=== PATIENT | female | born 1990 | race Caucasian/White ===

== ENCOUNTER → 2017-03-29 | Outpatient (CLI) | payer BC ==
--- NOTE | 2017-03-29 14:43 | XR ---
Lumbosacral spine HISTORY: Low back pain 5 views of the lumbosacral spine No comparisons There is no spondylolysis or spondylolisthesis. Mild spinal curvature could be positional. Lumbar john tebral bodies show preserved height and bone mineralization. Disc spaces are maintained IMPRESSION: Mild spinal curvature as described.
== END | disposition home or self-care (01) ==
LOC: RADXRMAIN 14:07
PROVIDERS: ATTEND Physician Assistant
DX: M43.8X7 Other specified deforming dorsopathies, lumbosacral region (principal)
CPT/HCPCS: 72110

== ENCOUNTER 2022-01-13 10:35 | Emergency (ER) | payer MEDICAID, OTHER ==
[2022-01-13 11:02] VITALS: BP 122/80; PULSE 85; RESP 18; TEMP 97.9
[2022-01-13 12:21] LABS: Basophils % (A) 1 %; Eosinophils # (A) 0.1 k/uL (0-0.7); Eosinophils % (A) 2 %; HCT 45.4 % (34.0-46.0); HGB 15.1 gm/dL (11.4-16.0); Lymphocytes # (A) 3.3 k/uL (1.0-4.8); Lymphocytes % (A) 39 %; MCH 30.9 pg (25.0-35.0); MCHC 33.2 g/dL (31.0-37.0); MCV 93.3 fL (80.0-100.0); Mean Platelet Volume 8.4; Monocytes # (A) 0.4 k/uL (0-1.0); Monocytes % (A) 5 %; Neutrophils # (A) 4.3 k/uL (1.3-7.7); Neutrophils % (A) 51 %; Platelet Count 277 k/uL (150-450); RBC 4.87 m/uL (3.80-5.40); RDW 12.3 % (11.5-15.5); WBC 8.4 k/uL (3.8-10.6)
--- NOTE | 2022-01-13 12:24 | ED ---
Abdominal Pain HPI - General Chief Complaint: Abdominal Pain Stated Complaint: abd pain Time Seen by Provider: 01/13/22 11:26 Source: patient, RN notes reviewed Mode of arrival: ambulatory Limitations: no limitations - History of Present Illness Initial Comments: This is a 31-year-old female who presents to the emergency department with abdominal pain. States that 2 days ago she developed pain in the right lower back that has wrapped around to the right lower abdomen. Denies any history of kidney stones or previous similar symptoms. States that her symptoms seem to be getting worse. She does note chills and diarrhea, but has not taken her tempe rature. Denies any nausea or vomiting. She did see her primary care provider today who stated that she had some red blood cells and white blood cells in her urine. She denies any milena hematuria or dysuria. MD Complaint: abdominal pain Onset/Timin -: days(s) Location: RLQ Radiation: R flank Severity scale (1-10): 8 Consistency: constant Associated Symptoms: nausea, diarrhea, chills - Related Data Patient : No Previous Rx's Medication Instructions Recorded Cyclobenzaprine [Flexeril] 5 mg PO HS PRN #10 tab 01/13/22 Diclofenac Sodium [Voltaren] 50 mg PO BID PRN #20 tab 01/13/22 Allergies Allergy/AdvReac Type Severity Reaction Status Date / Time Penicillins Allergy Anaphylaxis Verified 01/13/22 11:03 sulfamethoxazole Allergy Nausea & Verified 01/13/22 11:03 [From Bactrim] Vomiting trimethoprim [From Bactrim] Allergy Nausea & Verified 01/13/22 11:03 Vomiting Review of Systems ROS Statement: Those systems with pertinent positive or pertinent negative responses have been documented in the HPI. ROS Other: All systems not noted in ROS Statement are negative. Constitutional: Reports: chills ENT: Denies: ear pain, throat pain Respiratory: Denies: cough, dyspnea Cardiovascular: Denies: chest pain, palpitations Gastrointestinal: Reports: abdominal pain, nausea, diarrhea. Denies: vomiting Genitourinary: Denies: urgency, dysuria, frequency, hematuria Musculoskeletal: Reports: back pain Skin: Denies: rash Neurological: Denies: headache Past Medical History Past Medical History: No Reported History History of Any Multi-Drug Resistant Organisms: None Reported Past Surgical History: No Surgical Hx Reported Past Psychological History: No Psychological Hx Reported Smoking Status: Never smoker Past Alcohol Use History: Rare Past Drug Use History: None Reported General Exam Limitations: no limitations General appearance: alert, in distress Head exam: Present: atraumatic, normocephalic, normal inspection Respiratory exam: Present: normal lung sounds bilaterally. Absent: respiratory distress, wheezes, rales, rhonchi, stridor Cardiovascular Exam: Present: regular rate, normal rhythm, normal heart sounds. Absent: systolic murmur, diastolic murmur, rubs, gallop, clicks GI/Abdominal exam: Present: soft, tenderness (mild pain in RLQ, tenderness to deep palpation in the mid left abdomen.), hyperactive bowel sounds. Absent: distended Back exam: Present: CVA tenderness (R). Absent: CVA tenderness (L) Neurological exam: Present: alert, oriented X3, CN II-XII intact Psychiatric exam: Present: normal affect, normal mood Skin exam: Present: warm, dry, intact, normal color. Absent: rash Course Vital Signs 01/13/22 10:58 Temperature 97.9 F Pulse Rate 85 Respiratory 18 Rate Blood Pressure 122/80 O2 Sat by Pulse 98 Oximetry Medical Decision Making - Medical Decision Making This is a 31-year-old female who presents to the emergency department for right lower abdominal pain and right lower back pain. Emergency Department abdominal panel ordered, including a CBC, CMP, amylase, lipase, and lactic acid. Urinalysis and beta hCG ordered as well. She is noted to be in distress during examination. Patient started on a liter of fluids and given Toradol for pain. CMP reveals mildly elevated ALT and urinalysis is consistent with some contamination, but does reveal trace blood. CBC does not have an elevated white count and reveals no signs of infection. Patient is also afebrile. Shared decision making took place with the patient when discussing a CT scan. I discussed with the patient the risk of radiation exposure, which can cause harm to ovaries in females and lead to reproductive issues in the future. However, given the acuity of her pain without similar symptoms in the past, chills, and trace blood in the urine, I do believe that this is a reasonable decision to evaluate for a possible kidney stone. Patient is agreeable to this and requests we proceed with a CT scan. 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 Patient did not report any pain on the left, but states that it hurt when I palpated her. She also did report significant improvement in pain with fluids and Toradol. I spoke with ED attending Dr. Craft, who advised she be discharged on antiinflammatories with follow up with her PCP for further evaluation and possible surgery referral if symptoms persist. I sent in a prescription for Diclofenac to the patient's pharmacy. Advised that she can take either this or Ibuprofen, however she cannot take them together. This will give her two antiinflammatory options, in the event one is more effective. Tylenol #3 starter pack provided to be taken when pain is more severe, advised only taking this at night and avoiding driving or operating machinery on this. Because the pain is in an area where she may have musculoskeletal pain, I will give her a small prescription for flexeril to see i f she has any improvement with that. I also advised her to only take this at night as it can cause drowsiness. Hot packs recommended as well. Patient was able to drink and eat at discharge and did not require any nausea medication while in the emergency department. Return precautions reviewed in depth, the patient is instructed to return to the emergency department if symptoms worsen including but not limited to, worsening pain, fevers, or uncontrollable vomiting. Patient verbalized understanding. This case was discussed in detail with the attending ED physician. Presentation, findings, and treatment plan discussed in detail as well. - Lab Data Result diagrams: 01/13/22 11:57 01/13/22 11:57 Lab Results 01/13/22 01/13/22 01/13/22 Range/Units 11:57 11:57 11:57 WBC 8.4 (3.8-10.6) k/uL RBC 4.87 (3.80-5.40) m/uL Hgb 15.1 (11.4-16.0) gm/dL Hct 45.4 (34.0-46.0) % MCV 93.3 (80.0-100.0) fL MCH 30.9 (25.0-35.0) pg MCHC 33.2 (31.0-37.0) g/dL RDW 12.3 (11.5-15.5) % Plt Count 277 (150-450) k/uL MPV 8.4 Neutrophils % 51 % Lymphocytes % 39 % Monocytes % 5 % Eosinophils % 2 % Basophils % 1 % Neutrophils # 4.3 (1.3-7.7) k/uL Lymphocytes # 3.3 (1.0-4.8) k/uL Monocytes # 0.4 (0-1.0) k/uL Eosinophils # 0.1 (0-0.7) k/uL Basophils # 0.0 (0-0.2) k/uL Sodium 137 (137-145) mmol/L Potassium 3.9 (3.5-5.1) mmol/L Chloride 105 (98-107) mmol/L Carbon Dioxide 26 (22-30) mmol/L Anion Gap 6 mmol/L BUN 10 (7-17) mg/dL Creatinine 0.75 (0.52-1.04) mg/dL Est GFR (CKD-EPI)AfAm >90 (>60 ml/min/1.73 sqM) Est GFR (CKD-EPI)NonAf >90 (>60 ml/min/1.73 sqM) Glucose 86 (74-99) mg/dL Plasma Lactic Acid Deangelo 1.3 (0.7-2.0) mmol/L Calcium 9.7 (8.4-10.2) mg/dL Total Bilirubin 0.9 (0.2-1.3) mg/dL AST 32 (14-36) U/L ALT 42 H (4-34) U/L Alkaline Phosphatase 58 (38-126) U/L Total Protein 8.0 (6.3-8.2) g/dL Albumin 4.6 (3.5-5.0) g/dL Amylase 63 (30-110) U/L Lipase 62 (23-300) U/L Urine Color Urine Appearance (Clear) Urine pH (5.0-8.0) Ur Specific [place] (1.001-1.035) Urine Protein (Negative) Urine Glucose (UA) (Negative) Urine Ketones (Negative) Urine Blood (Negative) Urine Nitrite (Negative) Urine Bilirubin (Negative) Urine Urobilinogen (<2.0) mg/dL Ur Leukocyte Esterase (Negative) Urine RBC (0-5) /hpf Urine WBC (0-5) /hpf Ur Squamous Epith Cells (0-4) /hpf Urine Bacteria (None) /hpf Hyaline Casts (0-2) /lpf Urine Mucus (None) /hpf Urine HCG, Qual (Not Detectd) 01/13/22 01/13/22 Range/Units 12:08 12:08 WBC (3.8-10.6) k/uL RBC (3.80-5.40) m/uL Hgb (11.4-16.0) gm/dL Hct (34.0-46.0) % MCV (80.0-100.0) fL MCH (25.0-35.0) pg MCHC (31.0-37.0) g/dL RDW (11.5-15.5) % Plt Count (150-450) k/uL MPV Neutrophils % % Lymphocytes % % Monocytes % % Eosinophils % % Basophils % % Neutrophils # (1.3-7.7) k/uL Lymphocytes # (1.0-4.8) k/uL Monocytes # (0-1.0) k/uL Eosinophils # (0-0.7) k/uL Basophils # (0-0.2) k/uL Sodium (137-145) mmol/L Potassium (3.5-5.1) mmol/L Chloride (98-107) mmol/L Carbon Dioxide (22-30) mmol/L Anion Gap mmol/L BUN (7-17) mg/dL Creatinine (0.52-1.04) mg/dL Est GFR (CKD-EPI)AfAm (>60 ml/min/1.73 sqM) Est GFR (CKD-EPI)NonAf (>60 ml/min/1.73 sqM) Glucose (74-99) mg/dL Plasma Lactic Acid Deangelo (0.7-2.0) mmol/L Calcium (8.4-10.2) mg/dL Total Bilirubin (0.2-1.3) mg/dL AST (14-36) U/L ALT (4-34) U/L Alkaline Phosphatase (38-126) U/L Total Protein (6.3-8.2) g/dL Albumin (3.5-5.0) g/dL Amylase (30-110) U/L Lipase (23-300) U/L Urine Color Yellow Urine Appearance Cloudy H (Clear) Urine pH 5.5 (5.0-8.0) Ur Specific [place] 1.023 (1.001-1.035) Urine Protein Negative (Negative) Urine Glucose (UA) Negative (Negative) Urine Ketones Negative (Negative) Urine Blood Trace H (Negative) Urine Nitrite Negative (Negative) Urine Bilirubin Negative (Negative) Urine Urobilinogen <2.0 (<2.0) mg/dL Ur Leukocyte Esterase Negative (Negative) Urine RBC <1 (0-5) /hpf Urine WBC 1 (0-5) /hpf Ur Squamous Epith Cells 6 H (0-4) /hpf Urine Bacteria Rare H (None) /hpf Hyaline Casts 1 (0-2) /lpf Urine Mucus Moderate H (None) /hpf Urine HCG, Qual Not Detected (Not Detectd) - Radiology Data Radiology results: report reviewed, image reviewed Disposition Clinical Impression: Right flank pain Disposition: HOME SELF-CARE Instructions (If sedation given, give patient instructions): Acute Abdominal Pain (ED), Abdominal Pain (ED), Flank Pain (ED) Additional Instructions: Return to the emergency department if your symptoms worsen, including but not limited to, worsening pain, fevers, chills, or vomiting. Follow up with your primary care provider in 2 days for reevaluation of symptoms and discussion of CT results to determine if further evaluation if warranted. Take the Tylenol #3 and Flexeril at night, as it can cause drowsiness. Avoid driving or operating machinery when taking them. Do not take Diclofenac with Ibuprofen, you can take this with Tylenol. Apply hot packs to the area of pain. Prescriptions: Cyclobenzaprine [Flexeril] 5 mg PO HS PRN #10 tab PRN Reason: Pain Diclofenac Sodium [Voltaren] 50 mg PO BID PRN #20 tab PRN Reason: Nausea And Vomiting Is patient prescribed a controlled substance at d/c from ED?: No Referrals: None,Stated [Primary Care Provider] - 1-2 days
[2022-01-13] MEDS ORDERED: SODIUM CHLORIDE 0.9% 1,000 ML IV STA (12:25)
[2022-01-13] MEDS ORDERED: KETOROLAC 15 MG/ML 1 ML VIAL IVP STA (12:26)
[2022-01-13 12:30] LABS: Appearance,Urine Cloudy (Clear); Bacteria,Urine Rare /hpf; Bilirubin,Urine Negative (Negative); Blood,Urine Trace (Negative); Color,Urine Yellow; Glucose,Urine (UA) Negative (Negative); Hyaline Casts,Urine 1 /lpf (0-2); Ketones,Urine Negative (Negative); Leukocyte Esterase,Urine Negative (Negative); Mucus,Urine Moderate /hpf; Nitrite,Urine Negative (Negative); PH, Urine 5.5 (5.0-8.0); Protein,Urine Negative (Negative); RBC,Urine <1 /hpf (0-5); Specific Gravity,Urine 1.023 (1.001-1.035); Squamous Epithelial Cell,Urine 6 /hpf (0-4); Urobilinogen,Urine <2.0 mg/dL (<2.0); WBC,Urine 1 /hpf (0-5)
[2022-01-13 12:37] LABS: ALT 42 U/L (4-34); AST 32 U/L (14-36); African American GFR (CKD) >90 (>60 ml/min/1.73 sqM); Albumin 4.6 g/dL (3.5-5.0); Alkaline Phosphatase 58 U/L (38-126); Amylase 63 U/L (30-110); Anion Gap 6 mmol/L; Blood Urea Nitrogen 10 mg/dL (7-17); Calcium 9.7 mg/dL (8.4-10.2); Carbon Dioxide 26 mmol/L (22-30); Chloride 105 mmol/L (98-107); Glucose 86 mg/dL (74-99); Lipase 62 U/L (23-300); Non-African American GFR(CKD) >90 (>60 ml/min/1.73 sqM); Potassium 3.9 mmol/L (3.5-5.1); Sodium 137 mmol/L (137-145); Total Bilirubin 0.9 mg/dL (0.2-1.3)
--- NOTE | 2022-01-13 13:14 | CT ---
EXAMINATION TYPE: CT abdomen pelvis wo con DATE OF EXAM: 01/13/2022 HISTORY: Generalized abdominal pain CT DLP: 992.9 mGycm. Automated Exposure Control for Dose Reduction was Utilized. TECHNIQUE: CT scan of the abdomen and pelvis is performed without oral or IV contrast. COMPARISON: NONE FINDINGS: Within the limitations of a non-contrast study, the following observations are made. LUNG BASES: No significant abnormality is appreciated. LIVER/GB: Liver is heterogeneously hypodense consistent with diffuse fatty infiltration. There is int raluminal low dense gallstone axial image 43. No surrounding inflammatory change or fat stranding shawnee und gallbladder noted. No biliary dilatation seen. PANCREAS: No significant abnormality is seen. SPLEEN: No significant abnormality is seen. ADRENALS: Nonspecific 1.2 cm left adrenal nodular thickening at the measures 33 favors benign etiolog y due to small size and patient's age. KIDNEYS: No renal calculi or hydronephrosis seen bilaterally. BOWEL: No suspicious small or large bowel dilation. Normal-appearing appendix extends medially from b ase of cecum. GENITAL ORGANS: Retroverted uterus. Ovaries are symmetric and upper limits of normal in size. A left- sided pelvic phlebolith axial image 136. LYMPH NODES: No greater than 1cm abdominal or pelvic lymph nodes are appreciated. Few slightly promin ent but subcentimeter lymph nodes throughout the left side of the mesentery with mild vasa prominence . OSSEOUS STRUCTURES: No significant abnormality is seen. OTHER: No significant additional abnormality is seen. IMPRESSION: No renal stones or hydronephrosis is seen bilaterally. No bowel obstruction. Borderline m ild darlene mesentery appearance particularly left abdomen could reflect product of mesenteric pannicul itis. Correlate clinically.
[2022-01-13] MEDS ORDERED: ACET/COD 300 MG/30 MG STARTER PACK 6 TAB BTL PO STA (13:55)
== END 2022-01-13 14:29 | disposition home or self-care (01) ==
LOC: EC 10:35
DX: R10.9 Unspecified abdominal pain (principal); Z88.0 Allergy status to penicillin; Z88.2 Allergy status to sulfonamides
CPT/HCPCS: 36415; 80053; 82150; 83605; 83690; 85025; 81001; 81025; 74176; 99284; 96374; 96361; J1885

== ENCOUNTER → 2022-07-30 | Outpatient (CLI) | payer BC ==
--- NOTE | 2022-07-30 14:32 | USB ---
Reason for Exam: Clinical finding. Findings: The upper outer quadrant of the left breast, the axilla of the left breast and the retroareolar of the left breast were scanned. A complete US of all four quadrants of the breast and retro-areolar region were reviewed. There is a heterogenous slightly hypoechoic mass at 1:00 10 cm from nipple measuring 1.6 x 1.3 x 1.4 cm. Anechoic cyst with posterior acoustic enhancement at 1:00 10 cm from the nipple consistent with cysts. Overall Assessment: Probably benign, BI-RAD 3 Management: Diagnostic Breast Ultrasound of the left breast in 3 months. Follow-up for heterogenous slightly hypoechoic mass at 1:00 10 cm from the nipple these may represent fibroadenoma versus other. A clinical breast exam by your physician is recommended on an annual basis and results should be correlated with mammographic findings. Electronically signed and approved by: Luke Tay DO
== END | disposition home or self-care (01) ==
LOC: RADUSWWP 13:54 → MERGE 14:20
PROVIDERS: ATTEND Obstetrics & Gynecology
DX: N63.0 Unspecified lump in unspecified breast (principal); N64.4 Mastodynia

== ENCOUNTER 2023-09-24 15:15 | Emergency (ER) | payer BC ==
--- NOTE | 2023-09-24 15:38 | ED ---
General Adult HPI - General Source: patient, RN notes reviewed Mode of arrival: ambulatory Limitations: no limitations <Kishore Klein - Last Filed: 09/24/23 15:37> <Jeff Jenkins - Last Filed: 09/24/23 20:56> - General Stated complaint: abd pain Time Seen by Provider: 09/24/23 15:37 - History of Present Illness Initial comments: 32-year-old female presents emergency Department chief complaint of lower abdominal pain. Patient states that she does not have any dysuria hematuria states she may be . Patient states that she did have in November and had a baby. Patient denies any fevers or chills no back pain (Kishore Klein) 32-year-old female presenting with chief complaint of abdominal pain. Patient started experiencing centralize pelvic pain that around 12:30 this afternoon. No vaginal bleeding or discharge, dysuria, hematuria, flank pain, nausea, vomiting, diarrhea, constipation, fever, chills. Patient is concerned she may be . (Jeff Jenkins) - Related Data Allergies Allergy/AdvReac Type Severity Reaction Status Date / Time Penicillins Allergy Anaphylaxis Verified 12/12/22 06:51 sulfamethoxazole Allergy Nausea & Verified 12/12/22 06:51 [From Bactrim] Vomiting trimethoprim [From Bactrim] Allergy Nausea & Verified 12/12/22 06:51 Vomiting Review of Systems ROS Other: All systems not noted in ROS Statement are negative. <Kishore Klein - Last Filed: 09/24/23 15:37> ROS Other: All systems not noted in ROS Statement are negative. <Jeff Jenkins - Last Filed: 09/24/23 20:56> ROS Statement: Those systems with pertinent positive or pertinent negative responses have been documented in the HPI. Past Medical History Past Medical History: No Reported History History of Any Multi-Drug Resistant Organisms: None Reported Past Surgical History: No Surgical Hx Reported Additional Past Surgical History / Comment(s): cervical biopsy, cold knife cone, rhinoplasty Past Anesthesia/Blood Transfusion Reactions: No Reported Reaction Past Psychological History: No Psychological Hx Reported Smoking Status: Never smoker Past Alcohol Use History: None Reported Past Drug Use History: None Reported <Kishore Klein - Last Filed: 09/24/23 15:37> General Exam <Kishore Klein - Last Filed: 09/24/23 15:37> Limitations: no limitations General appearance: alert, in no apparent distress Head exam: Present: atraumatic, normocephalic, normal inspection Eye exam: Present: normal appearance, EOMI Neck exam: Present: normal inspection, full ROM Respiratory exam: Present: normal lung sounds bilaterally. Absent: respiratory distress, wheezes, rales, rhonchi, stridor Cardiovascular Exam: Present: regular rate, normal rhythm, normal heart sounds. Absent: systolic murmur, diastolic murmur, rubs, gallop, clicks GI/Abdominal exam: Present: soft, tenderness (Diffuse discomfort in all 4 quadrants, no guarding or rebound, not worse on R vs L side). Absent: distended, guarding, rebound, rigid Neurological exam: Present: alert, oriented X3 Psychiatric exam: Present: normal affect, normal mood Skin exam: Present: warm, dry, intact, normal color. Absent: rash <Jeff Jenkins - Last Filed: 09/24/23 20:56> - General Exam Comments Initial Comments: Visual Physical Exam Vital signs reviewed General: Well-appearing, nontoxic, no acute distress. Head: Normocephalic, atraumatic Eyes: PERRLA, EOMI ENT: Airway patent Chest: Nonlabored breathing Skin: No visual rash, normal skin tone Neuro: Alert and oriented 3 Musculoskeletal: No gross abnormalities (Kishore Klein) Course Vital Signs 09/24/23 16:07 Temperature 98.4 F Pulse Rate 87 Respiratory 18 Rate Blood Pressure 128/83 O2 Sat by Pulse 98 Oximetry Medical Decision Making <Kishore Klein - Last Filed: 09/24/23 15:37> - Lab Data Result diagrams: 09/24/23 16:52 09/24/23 16:52 <Jeff Jenkins - Last Filed: 09/24/23 20:56> - Medical Decision Making I completed the quick note portion of this chart signed Kishore Klein PA-C (Kishore Klein) Was pt. sent in by a medical professional or institution ([facility], [facility] [facility], urgent care, hospital, or half-way...) When possible be specific @ -No Did you speak to anyone other than the patient for history (EMS, parent, family, police, friend...)? What history was obtained from this source @ -No Did you review nursing and triage notes (agree or disagree)? Why? @ -I reviewed and agree with nursing and triage notes Were old charts reviewed (outside hosp., previous admission, EMS record, old EKG, old radiological studies, urgent care reports/EKG's, half-way records)? Report findings @ -No old charts were reviewed Differential Diagnosis (chest pain, altered mental status, abdominal pain women, abdominal pain men, vaginal bleeding, weakness, fever, dyspnea, syncope, headache, dizziness, GI bleed, back pain, seizure, CVA, palpatations, mental health, musculoskeletal)? @ -MDM Differential Abdominal Pain Women: Appendicitis, Cholecystitis, diverticulosis, ischemic bowel, pancreatitis, hep atitis, UTI, gastroenteritis, AAA, incarcerated hernia, bowel obstruction, constipation, inflammatory bowel, hepatitis, peptic ulcer disease, splenic infarction, perforated viscus, vulvitis, ovarian torsion, PID, kidney stone, placenta abruption... This is not meant to be an all-inclusive list EKG interpreted by me (3pts min.). @ -As above X-rays interpreted by me (1pt min.). @ -None done CT interpreted by me (1pt min.). @ -None done U/S interpreted by me (1pt. min.). @ -None done What testing was considered but not performed or refused? (CT, X-rays, U/S, labs)? Why? @ -None What meds were considered but not given or refused? Why? @ -None Did you discuss the management of the patient with other professionals (professionals i.e. , PA, [employer], lab, RT, psych nurse, social services specialist, supervisor customer services, teacher, public information officer, residential case manager)? Give summary @ -No Was smoking cessation discussed for >3mins.? @ -No Was critical care preformed (if so, how long)? @ -No Were there social determinants of health that impacted care today? How? (Homelessness, low income, unemployed, alcoholism, drug addiction, transportation, low edu. Level, literacy, decrease access to med. care, halfway, rehab)? @ -No Was there de-escalation of care discussed even if they declined (Discuss DNR or withdrawal of care, Hospice)? DNR status @ -No What co-morbidities impacted this encounter? (DM, HTN, Smoking, COPD, CAD, Cancer, CVA, ARF, Chemo, Hep., AIDS, mental health diagnosis, sleep apnea, morbid obesity)? @ -None Was patient admitted / discharged? Hospital course, mention meds given and route, prescriptions, significant lab abnormalities, going to OR and other pertinent info. @ -32-year-old female presenting with chief complaint of abdominal pain. Pain is located in the central portion of the pelvis, located suprapubically, pain is not worse on the right or left side. On physical exam she has diffuse discomfort in all 4 quadrants. Lab work shows no leukocytosis or anemia. CMP is essentially unremarkable. Urine shows no bleeding or infectious process. Negative hCG. Patient is given Toradol. Patient is resting in the bed showing no acute signs of distress. She is requesting to be discharged. Follow-up with PCP. Report back to ER with any new or worsening symptoms. Discussed return parameters and answered all questions. Patient conveyed verbal understanding and agreed to the plan. I discussed this case in detail with my attending Dr. Hernández Undiagnosed new problem with uncertain prognosis? @ -No Drug Therapy requiring intensive monitoring for toxicity (Heparin, Nitro, Insulin, Cardizem)? @ -No Were any procedures done? @ -No Diagnosis/symptom? @ -Abdominal pain Acute, or Chronic, or Acute on Chronic? @ -Acute Uncomplicated (without systemic symptoms) or Complicated (systemic symptoms)? @ -uncomplicated Side effects of treatment? @ -No Exacerbation, Progression, or Severe Exacerbation? @ -No Poses a threat to life or bodily function? How? (Chest pain, [place], [place], pneumonia, PE, COPD, DKA, ARF, appy, cholecystitis, CVA, Diverticulitis, Homicidal, Suic idal, threat to staff... and all critical care pts) @ -Low likelihood (Jeff Jenkins) - Lab Data Lab Results 09/24/23 09/24/23 09/24/23 Range/Units 16:52 16:52 16:52 WBC 8.9 (3.8-10.6) k/uL RBC 4.57 (3.80-5.40) m/uL Hgb 14.0 (11.4-16.0) gm/dL Hct 40.6 (34.0-46.0) % MCV 89.0 (80.0-100.0) fL MCH 30.7 (25.0-35.0) pg MCHC 34.5 (31.0-37.0) g/dL RDW 13.3 (11.5-15.5) % Plt Count 233 (150-450) k/uL MPV 8.7 Neutrophils % 49 % Lymphocytes % 42 % Monocytes % 6 % Eosinophils % 2 % Basophils % 0 % Neutrophils # 4.3 (1.3-7.7) k/uL Lymphocytes # 3.7 (1.0-4.8) k/uL Monocytes # 0.5 (0-1.0) k/uL Eosinophils # 0.2 (0-0.7) k/uL Basophils # 0.0 (0-0.2) k/uL Sodium 139 (137-145) mmol/L Potassium 4.0 (3.5-5.1) mmol/L Chloride 102 (98-107) mmol/L Carbon Dioxide 25 (22-30) mmol/L Anion Gap 12 mmol/L BUN 10 (7-17) mg/dL Creatinine 0.61 (0.52-1.04) mg/dL Est GFR (CKD-EPI)AfAm >90 (>60 ml/min/1.73 sqM) Est GFR (CKD-EPI)NonAf >90 (>60 ml/min/1.73 sqM) Glucose 84 (74-99) mg/dL Calcium 9.8 (8.4-10.2) mg/dL Total Bilirubin 0.6 (0.2-1.3) mg/dL AST 30 (14-36) U/L ALT 45 H (4-34) U/L Alkaline Phosphatase 70 (38-126) U/L Total Protein 7.6 (6.3-8.2) g/dL Albumin 4.5 (3.5-5.0) g/dL Lipase 62 (23-300) U/L Urine Color Yellow Urine Appearance Clear (Clear) Urine pH 6.0 (5.0-8.0) Ur Specific Holcomb 1.041 H (1.001-1.035) Urine Protein Trace H (Negative) Urine Glucose (UA) Negative (Negative) Urine Ketones Trace H (Negative) Urine Blood Negative (Negative) Urine Nitrite Negative (Negative) Urine Bilirubin Negative (Negative) Urine Urobilinogen 2.0 (<2.0) mg/dL Ur Leukocyte Esterase Negative (Negative) Urine HCG, Qual (Not Detectd) 09/24/23 Range/Units 16:52 WBC (3.8-10.6) k/uL RBC (3.80-5.40) m/uL Hgb (11.4-16.0) gm/dL Hct (34.0-46.0) % MCV (80.0-100.0) fL MCH (25.0-35.0) pg MCHC (31.0-37.0) g/dL RDW (11.5-15.5) % Plt Count (150-450) k/uL MPV Neutrophils % % Lymphocytes % % Monocytes % % Eosinophils % % Basophils % % Neutrophils # (1.3-7.7) k/uL Lymphocytes # (1.0-4.8) k/uL Monocytes # (0-1.0) k/uL Eosinophils # (0-0.7) k/uL Basophils # (0-0.2) k/uL Sodium (137-145) mmol/L Potassium (3.5-5.1) mmol/L Chloride (98-107) mmol/L Carbon Dioxide (22-30) mmol/L Anion Gap mmol/L BUN (7-17) mg/dL Creatinine (0.52-1.04) mg/dL Est GFR (CKD-EPI)AfAm (>60 ml/min/1.73 sqM) Est GFR (CKD-EPI)NonAf (>60 ml/min/1.73 sqM) Glucose (74-99) mg/dL Calcium (8.4-10.2) mg/dL Total Bilirubin (0.2-1.3) mg/dL AST (14-36) U/L ALT (4-34) U/L Alkaline Phosphatase (38-126) U/L Total Protein (6.3-8.2) g/dL Albumin (3.5-5.0) g/dL Lipase (23-300) U/L Urine Color Urine Appearance (Clear) Urine pH (5.0-8.0) Ur Specific Holcomb (1.001-1.035) Urine Protein (Negative) Urine Glucose (UA) (Negative) Urine Ketones (Negative) Urine Blood (Negative) Urine Nitrite (Negative) Urine Bilirubin (Negative) Urine Urobilinogen (<2.0) mg/dL Ur Leukocyte Esterase (Negative) Urine HCG, Qual Not Detected (Not Detectd) Disposition <Kishore Klein - Last Filed: 09/24/23 15:37> Is patient prescribed a controlled substance at d/c from ED?: No Time of Disposition: 19:09 <Jeff Jenkins - Last Filed: 09/24/23 20:56> Clinical Impression: Abdominal pain Disposition: HOME SELF-CARE Condition: Fair Instructions (If sedation given, give patient instructions): Abdominal Pain (ED) Additional Instructions: Follow-up with PCP. Report back to ER with any new or worsening symptoms. Referrals: None,Stated [Primary Care Provider] - 1-2 days Jim Francis MD [STAFF PHYSICIAN] - 1-2 days Herbert Posada MD [STAFF PHYSICIAN] - 1-2 days Reny Tucker MD [STAFF PHYSICIAN] - 1-2 days
[2023-09-24 16:11] VITALS: BP 128/83; PULSE 87; RESP 18; TEMP 98.4
[2023-09-24 17:29] LABS: Basophils % (A) 0 %; Eosinophils # (A) 0.2 k/uL (0-0.7); Eosinophils % (A) 2 %; HCT 40.6 % (34.0-46.0); Lymphocytes # (A) 3.7 k/uL (1.0-4.8); Lymphocytes % (A) 42 %; MCH 30.7 pg (25.0-35.0); MCHC 34.5 g/dL (31.0-37.0); Mean Platelet Volume 8.7; Monocytes # (A) 0.5 k/uL (0-1.0); Monocytes % (A) 6 %; Neutrophils # (A) 4.3 k/uL (1.3-7.7); Neutrophils % (A) 49 %; Platelet Count 233 k/uL (150-450); RBC 4.57 m/uL (3.80-5.40); RDW 13.3 % (11.5-15.5); WBC 8.9 k/uL (3.8-10.6)
[2023-09-24 17:34] LABS: Appearance,Urine Clear (Clear); Bilirubin,Urine Negative (Negative); Blood,Urine Negative (Negative); Color,Urine Yellow; Glucose,Urine (UA) Negative (Negative); Ketones,Urine Trace (Negative); Leukocyte Esterase,Urine Negative (Negative); Nitrite,Urine Negative (Negative); Protein,Urine Trace (Negative); Specific Gravity,Urine 1.041 (1.001-1.035)
[2023-09-24 17:43] LABS: ALT 45 U/L (4-34); AST 30 U/L (14-36); African American GFR (CKD) >90 (>60 ml/min/1.73 sqM); Albumin 4.5 g/dL (3.5-5.0); Alkaline Phosphatase 70 U/L (38-126); Anion Gap 12 mmol/L; Blood Urea Nitrogen 10 mg/dL (7-17); Calcium 9.8 mg/dL (8.4-10.2); Carbon Dioxide 25 mmol/L (22-30); Chloride 102 mmol/L (98-107); Glucose 84 mg/dL (74-99); Lipase 62 U/L (23-300); Non-African American GFR(CKD) >90 (>60 ml/min/1.73 sqM); Sodium 139 mmol/L (137-145); Total Bilirubin 0.6 mg/dL (0.2-1.3); Total Protein 7.6 g/dL (6.3-8.2)
[2023-09-24] MEDS ORDERED: KETOROLAC 15 MG/ML 1 ML VIAL IVP STA (17:43)
== END 2023-09-24 19:32 | disposition home or self-care (01) ==
LOC: EC 15:15
DX: R10.30 Lower abdominal pain, unspecified (principal); Z88.0 Allergy status to penicillin; Z88.2 Allergy status to sulfonamides
CPT/HCPCS: 99284; 96374; 36415; 80053; 83690; 85025; 81003; 81025; J1885

== ENCOUNTER → 2023-10-14 | Outpatient (CLI) | payer OTHER ==
--- NOTE | 2023-10-14 17:53 | XR ---
EXAMINATION TYPE: XR hand complete LT DATE OF EXAM: 10/14/2023 COMPARISON: None HISTORY: Left hand injury TECHNIQUE: 3 view left hand FINDINGS: No acute fracture or dislocation is evident. Joint spaces are preserved. Soft tissues are u nremarkable. Follow-up exam can be performed 7-10 days from acute trauma for continued pain. IMPRESSION: 1. No acute osseous abnormality left hand
--- NOTE | 2023-10-14 17:55 | XR ---
EXAMINATION TYPE: XR wrist complete LT DATE OF EXAM: 10/14/2023 COMPARISON: None HISTORY: Pain TECHNIQUE: 4 view left wrist FINDINGS: No acute fractures or dislocations are evident. Joint spaces are preserved. Soft tissues ar e normal. Follow up exams can be performed 7-10 days from acute trauma for continued pain. If there is pain at the anatomic snuff box, nuclear medicine bone scan could be performed. IMPRESSION: 1. No acute osseous abnormality left wrist
== END | disposition home or self-care (01) ==
LOC: RADXRMAIN 16:48
PROVIDERS: ATTEND Emergency Medicine
DX: S63.502A Unspecified sprain of left wrist, initial encounter (principal); S63.602A Unspecified sprain of left thumb, initial encounter; M79.2 Neuralgia and neuritis, unspecified; R20.9 Unspecified disturbances of skin sensation; X58.XXXA Exposure to other specified factors, initial encounter

== ENCOUNTER 2024-09-04 17:04 | Emergency (ER) | payer BC, OTHER ==
[2024-09-04 17:19] VITALS: RESP 16; TEMP 99.4
--- NOTE | 2024-09-04 17:24 | ED ---
Female Urogenital HPI - General Source: patient, RN notes reviewed Mode of arrival: ambulatory Limitations: no limitations - History of Present Illness Last Menstrual Period: 08/11/24 <Pooja Enriquez - Last Filed: 09/04/24 17:22> - General Source: patient, RN notes reviewed, old records reviewed Mode of arrival: ambulatory Limitations: no limitations - History of Present Illness MD Complaint: pelvic pain, other (Positive your test) -: days(s) Location: suprapubic Severity: mild Severity scale (1-10): 1 Quality: cramping Consistency: intermittent Improves with: none Worsens with: none Patient : Yes Associated Symptoms: denies other symptoms <Presley Hernández - Last Filed: 09/05/24 17:19> - General Chief complaint: Urogenital Stated complaint: 6 weeks preg,Nausea Time Seen by Provider: 09/04/24 17:19 - History of Present Illness Initial comments: Quick [id number] female [id number] presenting to the emergency department with referral from urgent care for complaint of lower abdominal pain. Patient was diagnosed with urinary tract infection and was informed she had a positive test. Patient has been having lower abdominal cramping over the past few days. Denies vaginal bleeding. lest menstrual cycle was 08/11/2024. (Pooja Enriquez) This is a 33 female sent in from urgent care for positive test with abdominal pain possible urinary tract infection (Presley Hernández) - Related Data Allergies Allergy/AdvReac Type Severity Reaction Status Date / Time Penicillins Allergy Anaphylaxis Verified 09/04/24 17:19 sulfamethoxazole Allergy Nausea & Verified 09/04/24 17:19 [From Bactrim] Vomiting trimethoprim [From Bactrim] Allergy Nausea & Verified 09/04/24 17:19 Vomiting Review of Systems ROS Other: All systems not noted in ROS Statement are negative. <Pooja Enriquez - Last Filed: 09/04/24 17:22> ROS Other: All systems not noted in ROS Statement are negative. <Presley Hernández - Last Filed: 09/05/24 17:19> ROS Statement: Those systems with pertinent positive or pertinent negative responses have been documented in the HPI. Past Medical History Past Medical History: No Reported History History of Any Multi-Drug Resistant Organisms: None Reported Past Surgical History: No Surgical Hx Reported Additional Past Surgical History / Comment(s): cervical biopsy, cold knife cone, rhinoplasty Past Anesthesia/Blood Transfusion Reactions: No Reported Reaction Past Psychological History: No Psychological Hx Reported Smoking Status: Never smoker Past Alcohol Use History: None Reported Past Drug Use History: None Reported <StielemichellePooja - Last Filed: 09/04/24 17:22> General Exam Limitations: no limitations <Stieler,Pooja - Last Filed: 09/04/24 17:22> General appearance: alert, in no apparent distress Head exam: Present: atraumatic, normocephalic, normal inspection Eye exam: Present: normal appearance, PERRL, EOMI. Absent: scleral icterus, conjunctival injection, periorbital swelling ENT exam: Present: normal exam, mucous membranes moist Neck exam: Present: normal inspection. Absent: tenderness, meningismus, lymphadenopathy Respiratory exam: Present: normal lung sounds bilaterally. Absent: respiratory distress, wheezes, rales, rhonchi, stridor Cardiovascular Exam: Present: regular rate, normal rhythm, normal heart sounds. Absent: systolic murmur, diastolic murmur, rubs, gallop, clicks GI/Abdominal exam: Present: soft, normal bowel sounds. Absent: distended, tenderness, guarding, rebound, rigid Extremities exam: Present: normal inspection, full ROM, normal capillary refill. Absent: tenderness, pedal edema, joint swelling, calf tenderness Back exam: Present: normal inspection Neurological exam: Present: alert, oriented X3, CN II-XII intact Psychiatric exam: Present: normal affect, normal mood Skin exam: Present: warm, dry, intact, normal color. Absent: rash <Presley Hernández - Last Filed: 09/05/24 17:19> - General Exam Comments Initial Comments: Visual Physical Exam Vital signs reviewed General: Well-appearing, nontoxic, no acute distress. Head: Normocephalic, atraumatic Eyes: PERRLA, EOMI ENT: Airway patent Chest: Nonlabored breathing Skin: No visual rash, normal skin tone Neuro: Alert and oriented 3 Musculoskeletal: No gross abnormalities (Stieler,Pooja) Course <Presley Hernández - Last Filed: 09/05/24 17:19> Vital Signs 09/04/24 09/04/24 17:17 20:17 Temperature 99.4 F Pulse Rate 102 H 77 Respiratory 16 16 Rate Blood Pressure 125/84 117/83 O2 Sat by Pulse 100 100 Oximetry - Reevaluation(s) Reevaluation #1: 09/04/24 20:12 Medical records reviewed (Presley Hernández) Reevaluation #2: 09/04/24 20:12 Patient symptoms improved (Presley Hernández) Reevaluation #3: 09/04/24 20:12 Patient informed of results and questions answered (Presley Hernández) Reevaluation #4: Was pt. sent in by a medical professional or institution ([facility], [facility], urgent care, hospital, or senior care...) When possible be specific @ -no Did you speak to anyone other than the patient for history (EMS, parent, family, police, friend...)? What history was obtained from this source @ -no Did you review nursing and triage notes (agree or disagree)? Why? @ -agree Are old charts reviewed (outside hosp., previous admission, EMS record, old EKG, old radiological studies, urgent care reports/EKG's, senior care records)? Report findings @ -yes Differential Diagnosis (chest pain, altered mental status, abdominal pain women, abdominal pain men, vaginal bleeding, weakness, fever, dyspnea, syncope, headache, dizziness, GI bleed, back pain, seizure, CVA, palpatations, mental health, musculoskeletal)? @ -prior EKG interpreted by me (3pts min.). @ -no X-rays interpreted by me (1pt min.). @ -no CT interpreted by me (1pt min.). @ -Yes no acute IUP is seen, early low beta U/S interpreted by me (1pt. min.). @ -no What testing was considered but not performed or refused? (CT, X-rays, U/S, labs)? Why? @ -none What meds were considered but not given or refused? Why? @ -none Did you discuss the management of the patient with other professionals (professionals i.e. [facility] Smith, [facility] [facility], lab, RT, psych nurse, social service manager, technical sales director, teacher, civil preparedness officer, geriatric case manager)? Give summary @ -no Was smoking cessation discussed for >3mins.? @ -no Was critical care preformed (if so, how long)? @ -no Were there social determinants of health that impacted care today? How? (Homelessness, low income, unemployed, alcoholism, drug addiction, transpo rtation, low edu. Level, literacy, decrease access to med. care, usp, rehab)? @ -none Was there de-escalation of care discussed even if they declined (Discuss DNR or withdrawal of care, Hospice)? DNR status @ -no What co-morbidities impacted this encounter? (DM, HTN, Smoking, COPD, CAD, Cancer, CVA, ARF, Chemo, Hep., AIDS, mental health diagnosis, sleep apnea, morbid obesity)? @ -none Was patient admitted / discharged? Hospital course, mention meds given and route, prescriptions, significant lab abnormalities, going to OR and other pertinent info. @ - 33 female positive test positive urine of your urgent care positive beta-hCG 50 here in the ER nothing seen on ultrasound no abdominal tenderness patient can be discharged Discharge Undiagnosed new problem with uncertain prognosis? @ -no Drug Therapy requiring intensive monitoring for toxicity (Heparin, Nitro, Insu rc, Cardizem)? @ -no Were any procedures done? @ -no Diagnosis/symptom? @ -Abdominal pain in Acute, or Chronic, or Acute on Chronic? @ -Acute Uncomplicated (without systemic symptoms) or Complicated (systemic symptoms)? @ -Complicated Side effects of treatment? @ -no Exacerbation, Progression, or Severe Exacerbation? @ -exacerbation Poses a threat to life or bodily function? How? (Chest pain, [place], [place], pneumonia, PE, COPD, DKA, ARF, appy, cholecystitis, CVA, Diverticulitis, Homicidal, Suicidal, threat to staff... and all critical care pts) @ -yes (Presley Hernández) Reevaluation #5: Differential Abdominal Pain Women: Appendicitis, Cholecystitis, diverticulosis, ischemic bowel, pancreatitis, hepatitis, UTI, gastroenteritis, AAA, incarcerated hernia, bowel obstruction, constipation, inflammatory bowel, hepatitis, peptic ulcer disease, splenic infarction, perforated viscus, vulvitis, ovarian torsion, PID, kidney stone, placenta abruption, this is not meant to be an all-inclusive list (Presley Hernández) Medical Decision Making <Pooja Enriquez - Last Filed: 09/04/24 17:22> - Lab Data Result diagrams: 09/04/24 19:24 09/04/24 19:24 - Radiology Data Radiology results: report reviewed (Ultrasound shows no acute disease process, no IUP seen), image reviewed <Presley Hernández - Last Filed: 09/05/24 17:19> - Medical Decision Making I completed the quick note portion of this chart signed Pooja Enriquez PA-C (Pooja Enriquez) 33 female positive test positive urine of your urgent care positive beta-hCG 50 here in the ER nothing seen on ultrasound no abdominal tenderness patient can be discharged (Presley Hernández) - Lab Data Lab Results 09/04/24 09/04/24 09/04/24 Range/Units 19:24 19:24 19:24 WBC 10.1 (3.8-10.6) k/uL RBC 4.59 (3.80-5.40) m/uL Hgb 14.1 (11.4-16.0) gm/dL Hct 41.9 (34.0-46.0) % MCV 91.4 (80.0-100.0) fL MCH 30.8 (25.0-35.0) pg MCHC 33.7 (31.0-37.0) g/dL RDW 12.6 (11.5-15.5) % Plt Count 230 (150-450) k/uL MPV 8.5 Neutrophils % 50 % Lymphocytes % 41 % Monocytes % 5 % Eosinophils % 2 % Basophils % 0 % Neutrophils # 5.1 (1.3-7.7) k/uL Lymphocytes # 4.1 (1.0-4.8) k/uL Monocytes # 0.5 (0-1.0) k/uL Eosinophils # 0.2 (0-0.7) k/uL Basophils # 0.0 (0-0.2) k/uL Sodium 139 (137-145) mmol/L Potassium 4.0 (3.5-5.1) mmol/L Chloride 110 H (98-107) mmol/L Carbon Dioxide 23 (22-30) mmol/L Anion Gap 6 mmol/L BUN 13 (7-17) mg/dL Creatinine 0.58 (0.52-1.04) mg/dL Est GFR (CKD-EPI)AfAm >90 (>60 ml/min/1.73 sqM) Est GFR (CKD-EPI)NonAf >90 (>60 ml/min/1.73 sqM) Glucose 91 (74-99) mg/dL Calcium 9.0 (8.4-10.2) mg/dL Total Bilirubin 0.5 (0.2-1.3) mg/dL AST 22 (14-36) U/L ALT 33 (4-34) U/L Alkaline Phosphatase 53 (38-126) U/L Total Protein 7.1 (6.3-8.2) g/dL Albumin 4.2 (3.5-5.0) g/dL HCG, Quant 50.3 mIU/mL Urine Color Light Yellow Urine Appearance Clear (Clear) Urine pH 7.5 (5.0-8.0) Ur Specific Tanner 1.028 (1.001-1.035) Urine Protein Negative (Negative) Urine Glucose (UA) Negative (Negative) Urine Ketones Negative (Negative) Urine Blood Negative (Negative) Urine Nitrite Negative (Negative) Urine Bilirubin Negative (Negative) Urine Urobilinogen <2.0 (<2.0) mg/dL Ur Leukocyte Esterase Negative (Negative) Disposition <Pooja Enriquez - Last Filed: 09/04/24 17:22> Is patient prescribed a controlled substance at d/c from ED?: No Time of Disposition: 20:00 <Presley Hernández - Last Filed: 09/05/24 17:19> Clinical Impression: Abdominal pain affecting Disposition: HOME SELF-CARE Condition: Good Instructions (If sedation given, give patient instructions): Abdominal Pain in (ED) Referrals: Luke Beaver MD [Primary Care Provider] - 1-2 days
--- NOTE | 2024-09-04 19:01 | US ---
EXAMINATION TYPE: Transabdominal DATE OF EXAM: 09/04/2024 6:23 PM COMPARISON: NONE CLINICAL INDICATION: Female, 33 years old with history of + preg, ab cramping, pain; pelvic pain TECHNIQUE: Transvaginal (TV) and Transabdominal (TA) with grayscale and color Doppler imaging includi ng first trimester . FINDINGS: EXAM MEASUREMENTS: GESTATIONAL AGE / DATING Physician Established: Not yet established Dates by LMP: (3 weeks/3 days) EDC: 05/18/25 Dates by First Scan: No previous this is first scan Dates by Current Scan for: No IUP seen at this time MATERNAL ANATOMY Uterus: 6.9 x 4.5 x 5.4cm Right Ovary: 5.8 x 3.2 x 4.5cm Left Ovary: 3.3 x 2.2 x 1.7cm Post CDS / Adnexa: ?possible subtle hypoechoic area adjaent to left ovary = 1.2cm ??etiology Presence of free fluid: no Presence of corpus luteal cyst: anechoic area right ovary = 2.1 x 2.5 x 2.5cm Presence of subchorionic bleed: no GESTATION / SURVEY IUP: No IUP seen at this time Date of LMP: 08/11/24 Beta HcG (if available): Not available at this time. IMPRESSION: No evidence of intrauterine gestational sac with structure thought to be next to the left ovary which is indeterminate., correlate with B-hCG. If positive, this could represent early , ectopic or spontaneous . Follow up pelvic ultrasound in 5-7 days and serial beta hCG studie s are recommended. [facility], , 09/04/2024 6:58 PM
[2024-09-04 19:31] LABS: Basophils % (A) 0 %; Eosinophils # (A) 0.2 k/uL (0-0.7); Eosinophils % (A) 2 %; HCT 41.9 % (34.0-46.0); HGB 14.1 gm/dL (11.4-16.0); Lymphocytes # (A) 4.1 k/uL (1.0-4.8); Lymphocytes % (A) 41 %; MCH 30.8 pg (25.0-35.0); MCHC 33.7 g/dL (31.0-37.0); MCV 91.4 fL (80.0-100.0); Mean Platelet Volume 8.5; Monocytes # (A) 0.5 k/uL (0-1.0); Monocytes % (A) 5 %; Neutrophils # (A) 5.1 k/uL (1.3-7.7); Neutrophils % (A) 50 %; Platelet Count 230 k/uL (150-450); RBC 4.59 m/uL (3.80-5.40); RDW 12.6 % (11.5-15.5); WBC 10.1 k/uL (3.8-10.6)
[2024-09-04 19:40] LABS: Appearance,Urine Clear (Clear); Bilirubin,Urine Negative (Negative); Blood,Urine Negative (Negative); Color,Urine Light Yellow; Glucose,Urine (UA) Negative (Negative); Ketones,Urine Negative (Negative); Leukocyte Esterase,Urine Negative (Negative); Nitrite,Urine Negative (Negative); PH, Urine 7.5 (5.0-8.0); Protein,Urine Negative (Negative); Specific Gravity,Urine 1.028 (1.001-1.035); Urobilinogen,Urine <2.0 mg/dL (<2.0)
[2024-09-04] MEDS: ACETAMINOPHEN IV (For NPO) 1,000 MG in EMPTY BAG 1 BAG IVPB STA (19:42)
[2024-09-04 19:43] LABS: ALT 33 U/L (4-34); AST 22 U/L (14-36); African American GFR (CKD) >90 (>60 ml/min/1.73 sqM); Albumin 4.2 g/dL (3.5-5.0); Alkaline Phosphatase 53 U/L (38-126); Anion Gap 6 mmol/L; Blood Urea Nitrogen 13 mg/dL (7-17); Carbon Dioxide 23 mmol/L (22-30); Chloride 110 mmol/L (98-107); Glucose 91 mg/dL (74-99); Non-African American GFR(CKD) >90 (>60 ml/min/1.73 sqM); Sodium 139 mmol/L (137-145); Total Bilirubin 0.5 mg/dL (0.2-1.3); Total Protein 7.1 g/dL (6.3-8.2)
[2024-09-04] MEDS: SODIUM CHLORIDE 0.9% 1,000 ML IV STA (19:43)
[2024-09-04] MEDS: SODIUM CHLORIDE 0.9% 500 ML 500 ML IV STA (19:43)
[2024-09-04] MEDS: diphenhydrAMINE 50 MG/ML 1 ML VIAL IVP STA (19:53)
[2024-09-04 19:59] LABS: HCG,Quantitative Serum 50.3 mIU/mL
[2024-09-04 20:22] VITALS: BP 117/83; PULSE 77
== END 2024-09-04 20:17 | disposition home or self-care (01) ==
LOC: EC 17:04
DX: O26.891 Other specified pregnancy related conditions, first trimester (principal); R10.30 Lower abdominal pain, unspecified; Z88.0 Allergy status to penicillin; Z88.1 Allergy status to other antibiotic agents; Z88.2 Allergy status to sulfonamides; Z3A.01 Less than 8 weeks gestation of pregnancy
CPT/HCPCS: 36415; 80053; 85025; 81003; 84702; 76801; 76817; 99284; 96365; 96375; J1200; J0131

== ENCOUNTER 2025-05-01 08:23 | Outpatient (CLI) | payer BC ==
[2025-05-01 11:16] VITALS: BP 122/74; PULSE 84; RESP 16; TEMP 96.8
--- NOTE | 2025-05-23 09:14 | P.MSEPDOC ---
Presenting Problems - Arrival Data Date of Arrival on Unit: 05/01/25 Time of Arrival on Unit: 08:23 Mode of Transport: Ambulatory - Complaint OB-Reason for Admission/Chief Complaint: Possible Onset of Labor, Pain Comment: pt unable to describe pain in detail Medical History - Information : 2 Para: 1 Number of Living Children: 1 - Gestational Age Gestational Age by ANNABELLE (wks/days): 37 Weeks and 4 Days Review of Systems - Review of Systems Constitutional: No problems Breast: No problems ENT: No problems Cardiovascular: No problems Respiratory: No problems Gastrointestinal: No problems Genitourinary: No problems Musculoskeletal: No problems Neurological: No problems Skin: No problems Vital Signs - Temperature Temperature: 96.8 F Temperature Source: Temporal Artery Scan - Pulse Right Sitting Brachial Pulse Rate: 84 Pulse Assessment Method: Automatic Cuff - Respirations Respiratory Rate: 16 Oxygen Delivery Method: Room Air O2 Sat by Pulse Oximetry: 98 - Blood Pressure Right Arm Sitting Blood Pressure: 122/74 Blood Pressure Mean: 90 Blood Pressure Source: Automatic Cuff Medical Screen Scoring - Cervical Exam Dilation (cm): 3.5 Effacement (%): 70 Station: -2 - Uterine Contractions Frequency From (mins): 5 Frequency To (mins): 8 Duration From (seconds): 30 Duration To (seconds): 120 Intensity: Mild Resting: Soft to palpation - Assessment - Baby A Baseline FHR: 125 Heart Rate - NICHD Category: Category I (Normal) NST: Non-reactive Physician Notification - Physician Notified Physician Notified Date: 05/01/25 Physician Notified Time: 10:50 Physician: Nii Mccormack Order Received: Yes - Notification Comment Comment: DC Maternal Triage Index - Maternal Triage Index Presenting for scheduled procedure w/no complaint: No - Stat/Priority 1 Stat Priority 1: No - Urgent/Priority 2 Urgent Priority 2: No - Prompt/Priority 3 Prompt Priority 3: No - Non-Urgent/Priority 4 Non-Urgent Priority 4: Yes Criteria Met for Priority 4: contx Disposition - Disposition OB Disposition: Discharge to home Discharge Date: 05/01/25 Discharge Time: 11:00 I agree with the RN Medical Screening Exam: Yes Physician's MSE Comment: I have neither seen nor examined the patient. Case reviewed; plan agreed upon as documented in EMR&OBIX.: Yes Diagnosis: RELATED CONDITIONS, UNSPECIFIED, THIRD TRIMESTER
== END 2025-05-01 11:00 | disposition home or self-care (01) ==
LOC: FBPOP 08:23
PROVIDERS: ATTEND Obstetrics & Gynecology
DX: O26.893 Other specified pregnancy related conditions, third trimester (principal); Z3A.38 38 weeks gestation of pregnancy; R52 Pain, unspecified; Z88.0 Allergy status to penicillin; Z88.2 Allergy status to sulfonamides
CPT/HCPCS: 59025; 99213

== ENCOUNTER 2025-05-02 11:16 | Inpatient (IN) | payer BC ==
[2025-05-02] MEDS ORDERED: OXYTOCIN 10 UNIT/ML 1 ML VIAL IM PRN (13:56)
[2025-05-02] MEDS ORDERED: CARBOPROST TROMETHAMINE 250 MCG/ML 1 ML AMP IM PRN (13:56)
[2025-05-02] MEDS ORDERED: LIDOCAINE 0.5% (PF) 5 MG/ML (50 ML SDV) SQ PRN (13:56)
[2025-05-02] MEDS ORDERED: METHYLERGONOVINE 0.2 MG/ML 1 ML AMP IM PRN (13:56)
[2025-05-02] MEDS ORDERED: TERBUTALINE 1 MG/ML VIAL SQ PRN (13:56)
[2025-05-02] MEDS ORDERED: TRANEXAMIC 1,000 MG/100ML-NACL 1,000 MG in EMPTY BAG 1 BAG IV PRN (13:56)
[2025-05-02] MEDS ORDERED: OXYTOCIN 30 UNITS/500 ML NS 30 UNIT in SALINE 1 500ML.BAG IV SCH ×2 (14:00→18:45)
[2025-05-02 14:16] VITALS: RESP 16
[2025-05-02] MEDS: LACTATED RINGERS 1,000 ML IV SCH (14:19)
[2025-05-02 14:31] LABS: Basophils # (A) 0.01 10*3/uL (0.00-0.10); Basophils % (A) 0.1 %; Eosinophils # (A) 0.05 10*3/uL (0.04-0.35); Eosinophils % (A) 0.5 %; HCT 35.1 % (37.2-46.3); HGB 12.1 g/dL (12.0-15.0); Lymphocytes # (A) 2.58 10*3/uL (0.90-5.00); Lymphocytes % (A) 27.8 %; MCH 30.6 pg (27.0-32.0); MCHC 34.5 g/dL (32.0-37.0); MCV 88.9 fL (80.0-97.0); Monocytes # (A) 0.66 10*3/uL (0.20-1.00); Monocytes % (A) 7.1 %; Neutrophils # (A) 5.97 10*3/uL (1.80-7.70); Neutrophils % (A) 64.3 %; Platelet Count 215 10*3/uL (140-440); RBC 3.95 10*6/uL (4.10-5.20); RDW 13.6 % (11.5-14.5); WBC 9.29 10*3/uL (4.50-10.00)
--- NOTE | 2025-05-02 14:35 | P.HPOB ---
History of Present Illness H&P Date: 05/02/25 Chief Complaint: 37+ weeks, early active labor The patient is a 34-year-old 2 para 1-0-0-1 admitted at 37+ weeks as established by last menstrual period confirmed by 12-week ultrasound. She is admitted having made documented cervical change from 4 to 5 cm in triage in early active labor with all signs reassuring, category 1 heart rate tracing. Her has been uncomplicated and group B strep status is negative. Obstetrical history: 2 para 1-0-0-1 with 1 normal vaginal delivery. Current statistics are listed in history of present illness. EDC of 05/18/2025 was established by last menstrual period and confirmed by 12-week ultrasound. Laboratory workup demonstrates a blood type of B+ with a negative antibody screen. Rubella status is immune. The remainder of the laboratory workup was within normal limits. Early Glucola was normal. Second trimester Glucola was elevated but followed by a normal 3-hour glucose tolerance test. Group B strep status is negative. Gynecologic history: Unremarkable with no history of any infections to include STDs. Review of Systems Review of systems is confined to history of present illness. Past Medical History Past Medical History: No Reported History History of Any Multi-Drug Resistant Organisms: None Reported Past Surgical History: No Surgical Hx Reported Additional Past Surgical History / Comment(s): cervical biopsy, cold knife cone, rhinoplasty Past Anesthesia/Blood Transfusion Reactions: No Reported Reaction Past Psychological History: No Psychological Hx Reported Smoking Status: Former smoker Past Alcohol Use History: None Reported Past Drug Use History: None Reported - Past Family History Mother Family Medical History: No Reported History, Diabetes Mellitus Medications and Allergies Home Medications Medication Instructions Recorded Confirmed Type Ondansetron Odt [Zofran Odt] 4 mg PO Q8HR PRN #10 tab 11/23/24 05/02/25 Rx Allergies Allergy/AdvReac Type Severity Reaction Status Date / Time Penicillins Allergy Anaphylaxis Verified 05/02/25 11:49 sulfamethoxazole Allergy Nausea & Verified 05/02/25 11:49 [From Bactrim] Vomiting trimethoprim [From Bactrim] Allergy Nausea & Verified 05/02/25 11:49 Vomiting Exam Vital Signs Temp Pulse Resp BP Pulse Ox 05/02/25 14:06 97.0 F L 90 16 122/71 98 Intake and Output 05/01/25 05/02/25 05/02/25 22:59 06:59 14:59 Other: Weight 105.687 kg In general, this is a well-developed, mild to moderately obese white female in some discomfort as she is in labor. Her heart has a regular rhythm and rate without murmur. Her lungs are clear to auscultation bilaterally in all cerna. Her abdomen is gravid, nondistended, has normal active bowel sounds, is soft, nontender, and without any palpable masses aside from the uterine fundus. Her extremities are without any cyanosis, clubbing, or significant edema and are nontender to palpation bilaterally. Digital cervical examination demonstrates the cervix to be approximately 5 to 6 cm dilated, 70% effaced, with the vertex and presentation at -2 station. Artificial rupture of membranes is carried out demonstrating clear fluid. Results Result Diagrams: 05/02/25 14:16 Abnormal Lab Results - Last 24 Hours (Table) 05/02/25 Range/Units 14:16 RBC 3.95 L (4.10-5.20) 10*6/uL Hct 35.1 L (37.2-46.3) % Assessment and Plan (1) Active labor at term Current Visit: Yes Status: Acute Code(s): [id number] - SNOMED Code(s): 43351153 Plan: The patient is admitted for active management of labor. She has undergone artificial rupture of membranes and will have close maternal and surveillance along with expectant management. She has declined epidural analgesia at this time but is a candidate for IV analgesia if she chooses.
[2025-05-02] MEDS: BUTORPHANOL 1 MG/ML 1 ML VIAL IV PRN (15:49)
[2025-05-02] MEDS ORDERED: diphenhydrAMINE 25 MG CAP PO PRN (18:40)
[2025-05-02] MEDS ORDERED: diphenhydrAMINE 50 MG/ML 1 ML VIAL IVP PRN ×2 (18:40)
[2025-05-02] MEDS ORDERED: LANOLIN CREAM 1 GM TUBE TOPICAL PRN (18:40)
[2025-05-02] MEDS ORDERED: ZOLPIDEM 5 MG TAB PO PRN (18:40)
[2025-05-02] MEDS ORDERED: SIMETHICONE 80 MG CHEWABLE PO PRN (18:40)
[2025-05-02] MEDS ORDERED: HYDROCORTISONE 2.5% RECTAL CREAM 30 GM TUBE RECTAL PRN (18:40)
--- NOTE | 2025-05-02 18:44 | P.PROBDLV ---
Vaginal Delivery Note - . Vaginal Delivery Note: Date of delivery/service: 05/02/2025 The patient is a 34-year-old 2 para 1-0-0-1 admitted at 37-5/7 weeks by good dating parameters. She is admitted in early active labor with all signs reassuring, category 1 heart rate tracing. Her was essentially uncomplicated and group B strep status is negative. On labor and delivery, she had artificial rupture of membranes carried out demonstrating clear fluid. She made fairly rapid and steady progress through the active phase of labor to anterior lip which was manually reduced while she pushed. She then pushed over the course of approximately 20 to 25 minutes to a normal spontaneous vaginal delivery of a viable 6 pound 15.3 ounce baby boy with Apgars of 8 at 1 minute and 9 at 5 minutes delivered in the direct occiput anterior position. The placenta was delivered spontaneously, intact, and grossly normal with a grossly normal, centrally inserted three-vessel cord. There was a somewhat awkwardly shaped posterior midline perineal laceration with a right labial extension which was repaired continuously using 3-0 chromic catgut without difficulty. Estimated blood loss for the case was approximately 250 mL. There were no complications. All sponge, instrument, and needle counts were correct. Both mother and infant are resting comfortably in recovery.
[2025-05-02] MEDS: SENNOSIDES-DOCUSATE SODIUM 1 EACH TAB PO SCH (18:51)
[2025-05-02] MEDS: ACETAMINOPHEN TAB 500 MG TAB PO PRN (18:51)
[2025-05-02] MEDS: IBUPROFEN 800 MG TAB PO PRN (21:40)
[2025-05-02] MEDS: BENZOCAINE/MENTHOL SPRAY 1 GM/SPRAY AEROSOL TOPICAL PRN (21:41)
[2025-05-03 07:33] LABS: Basophils # (A) 0.02 10*3/uL (0.00-0.10); Basophils % (A) 0.2 %; Eosinophils # (A) 0.08 10*3/uL (0.04-0.35); Eosinophils % (A) 0.7 %; HCT 31.7 % (37.2-46.3); HGB 10.7 g/dL (12.0-15.0); Lymphocytes # (A) 2.86 10*3/uL (0.90-5.00); Lymphocytes % (A) 26.1 %; MCH 30.4 pg (27.0-32.0); MCHC 33.8 g/dL (32.0-37.0); MCV 90.1 fL (80.0-97.0); Monocytes # (A) 0.90 10*3/uL (0.20-1.00); Monocytes % (A) 8.2 %; Neutrophils # (A) 7.06 10*3/uL (1.80-7.70); Neutrophils % (A) 64.4 %; Platelet Count 196 10*3/uL (140-440); RBC 3.52 10*6/uL (4.10-5.20); RDW 13.9 % (11.5-14.5); WBC 10.96 10*3/uL (4.50-10.00)
[2025-05-03 08:24] VITALS: TEMP 98.2
--- NOTE | 2025-05-03 09:06 | P.DS ---
Providers Date of admission: 05/02/25 13:51 Expected date of discharge: 05/03/25 Attending physician: Soumya Valdez MD Primary care physician: Stated None - Discharge Diagnosis(es) (1) Active labor at term Current Visit: Yes Status: Acute (2) Normal vaginal delivery Current Visit: Yes Status: Acute Hospital Course: The patient is a 34-year-old 2 para 1-0-0-1 admitted at 37+ weeks by good dating parameters. She is admitted in early active labor with all signs reassuring, category and heart rate tracing. Her was uncomplicated and group B strep status is negative. On labor delivery, she made progress on her own and declined analgesia. She progressed ultimately to complete and then pushed to a normal spontaneous vaginal delivery of a viable 6 pound 15 ounce baby boy with Apgars of 8 at 1 minute and 9 at 5 minutes. Her course was unremarkable with vital signs remaining stable and her temperature was afebrile throughout. She was deemed stable for discharge on day #1 and was discharged home to follow-up in the office in 6 weeks time routinely. Discharge instructions included calling for any significantly increased bleeding or foul-smelling lochia, significantly increased fever abdominal pain, perineal complaints, breast complaints, or anything else that concerned her. She was additionally instructed to have nothing in the vagina for at least 6 weeks time to include intercourse. She understood her instructions and agrees to follow-up as noted above. Discharge medications included continued vitamins as she has opted to breast-feed. She is otherwise to use [id number] analgesic pain medications as needed. Maternal blood type is B+ and rubella status is immune. Procedures: #1. Normal spontaneous vaginal delivery #2. Repair of perineal laceration Patient Condition at Discharge: Stable Plan - Discharge Summary New Discharge Prescriptions: No Action Ondansetron Odt [Zofran Odt] 4 mg PO Q8HR PRN #10 tab PRN Reason: Nausea Discharge Medication List Ondansetron Odt [Zofran Odt] 4 mg PO Q8HR PRN #10 tab 11/23/24 [Rx] Follow up Appointment(s)/Referral(s): Soumya Valdez MD [STAFF PHYSICIAN] - 6 Weeks Discharge Disposition: HOME SELF-CARE
[2025-05-03 16:22] VITALS: BP 111/75; PULSE 90
== END 2025-05-03 19:00 | disposition home or self-care (01) | DRG 807 ==
LOC: FBPOP 11:16 → UNDOADMIN 13:51 → 4FBP 13:51
PROVIDERS: ADMIT Obstetrics & Gynecology; ATTEND Obstetrics & Gynecology
PROC: 10E0XZZ Delivery of Products of Conception, External Approach (ICD-10-PCS; principal; 2025-05-02)
PROC: 10907ZC Drainage of Amniotic Fluid, Therapeutic from Products of Conception, Via Natural or Artificial Opening (ICD-10-PCS; principal; 2025-05-02)
PROC: 0UQMXZZ Repair Vulva, External Approach (ICD-10-PCS; principal; 2025-05-02)
PROC: 0HQ9XZZ Repair Perineum Skin, External Approach (ICD-10-PCS; principal; 2025-05-02)
DX: O70.0 First degree perineal laceration during delivery (principal); Z88.0 Allergy status to penicillin; Z88.2 Allergy status to sulfonamides; Z87.891 Personal history of nicotine dependence; Z3A.37 37 weeks gestation of pregnancy; Z37.0 Single live birth
CPT/HCPCS: 59025; 85025; 86850; 86900; 86901; 99213